=== PATIENT | female | born 1990 | race Caucasian/White ===

== ENCOUNTER 2020-10-06 03:31 | Emergency (ER) | payer SELFPAY ==
[2020-10-06 03:56] VITALS: BP 117/79; PULSE 82; TEMP 98.3; BMI 25.6
[2020-10-06] MEDS ORDERED: AZITHROMYCIN 500 MG TABLET PO ONE (04:18)
[2020-10-06] MEDS ORDERED: metroNIDAZOLE 250 MG TABLET PO ONE (04:18)
[2020-10-06] MEDS ORDERED: AZITHROMYCIN 250 MG TABLET ONE (04:36)
[2020-10-06] MEDS ORDERED: metroNIDAZOLE 500 MG TABLET PO ONE (05:00)
[2020-10-06 06:23] LABS: HIV INTERPRETATION NEGATIVE (NEGATIVE)
== END 2020-10-06 06:13 | disposition home or self-care (01) ==
LOC: JER 03:31
DX: Z20.2 Contact with and (suspected) exposure to infections with a predominantly sexual mode of transmission (principal)
CPT/HCPCS: 36415; 86780; 87389; 87491; 87591; 87661; 99284-25

== ENCOUNTER 2024-08-12 09:39 | Emergency (ER) | payer OTHER ==
[2024-08-12 09:44] VITALS: BP 135/81; PULSE 103; RESP 18; TEMP 98.1; BMI 27.4
[2024-08-12] MEDS ORDERED: ACETAMINOPHEN INJECTION 100 ML ONE (10:13)
[2024-08-12 10:21] LABS: BASO % 0.9 % (0-2.0); EOS % 1.2 % (0-4.5); HEMATOCRIT 20.9 % (32.4-45.2); LYMPH % 18.3 % (8-40); MCHC 30.5 g/dl (32.0-36.0); MEAN CELL VOLUME 63.1 fl (80-96); MEAN PLT VOLUME 6.8 fl (7.5-11.1); MONO % 4.1 % (3.8-10.2); NEUT % 75.5 % (42.8-82.8); PLATELET COUNT 622 10^3/uL (134-434); RBC 3.32 M/mm3 (3.60-5.2); RDW 18.3 % (11.6-15.6); WHITE BLOOD COUNT 14.7 K/mm3 (4.0-10.0)
[2024-08-12 10:22] LABS: MCH 19.3 pg (25.7-33.7)
[2024-08-12] MEDS ORDERED: KETOROLAC TROMETHAMINE 30 MG/1 ML VIAL ONE (10:23)
[2024-08-12 10:26] LABS: HEMOGLOBIN 6.4 GM/dL (10.7-15.3)
[2024-08-12] MEDS: ACETAMINOPHEN 500 MG TABLET (FP) PO ONE (10:35)
[2024-08-12] MEDS: KETOROLAC TROMETHAMINE 30 MG/1 ML VIAL IVPUSH ONE (10:35)
[2024-08-12] MEDS ORDERED: VANCOMYCIN HCL 1,500 MG in DEXTROSE 5%-WATER - 500 ML IVPB ONE (10:43)
[2024-08-12 10:46] LABS: POTASSIUM 5.2 mmol/L (3.5-5.1)
[2024-08-12 10:47] LABS: CALCIUM 8.7 mg/dL (8.5-10.1)
[2024-08-12 10:48] LABS: BLOOD UREA NITROGEN 11.3 mg/dL (7-18)
[2024-08-12 10:51] LABS: CREATININE 0.8 mg/dL (0.55-1.3)
[2024-08-12 10:56] LABS: ANISOCYTOSIS 2+; MACROCYTOSIS 0
== END 2024-08-12 14:30 | disposition left against medical advice (07) ==
LOC: JER 09:39
PROC: 3E0333Z Introduction of Anti-inflammatory into Peripheral Vein, Percutaneous Approach (ICD-10-PCS; principal; 2024-08-12)
DX: O03.9 Complete or unspecified spontaneous abortion without complication (principal); D64.9 Anemia, unspecified; L08.9 Local infection of the skin and subcutaneous tissue, unspecified; R10.31 Right lower quadrant pain
CPT/HCPCS: 36415; 80048; 84702; 85025; 93005; 93010; 99284-25

== ENCOUNTER 2024-08-15 08:14 | Inpatient (IN) | payer OTHER ==
[2024-08-15 10:26] LABS: BASO % 0.6 % (0-2.0); EOS % 2.8 % (0-4.5); HEMATOCRIT 19.7 % (32.4-45.2); LYMPH % 20.2 % (8-40); MCHC 30.1 g/dl (32.0-36.0); MEAN CELL VOLUME 64.6 fl (80-96); MEAN PLT VOLUME 6.5 fl (7.5-11.1); MONO % 4.7 % (3.8-10.2); NEUT % 71.7 % (42.8-82.8); PLATELET COUNT 701 10^3/uL (134-434); RBC 3.04 M/mm3 (3.60-5.2); RDW 18.7 % (11.6-15.6); WHITE BLOOD COUNT 10.4 K/mm3 (4.0-10.0)
[2024-08-15 10:27] LABS: INR 1.03 (0.83-1.09); MCH 19.4 pg (25.7-33.7); PROTHROMBIN TIME (PATIENT) 11.8 SEC (9.7-13.0)
[2024-08-15 10:30] LABS: ACTIVATED PTT 32.2 SECONDS (25.2-36.5); HEMOGLOBIN 5.9 GM/dL (10.7-15.3); POTASSIUM 3.4 mmol/L (3.5-5.1)
[2024-08-15 10:31] LABS: CALCIUM 8.5 mg/dL (8.5-10.1)
[2024-08-15 10:32] LABS: ALBUMIN 2.4 g/dl (3.4-5.0); BLOOD UREA NITROGEN 7.2 mg/dL (7-18)
[2024-08-15 10:35] LABS: CREATININE 0.8 mg/dL (0.55-1.3)
[2024-08-15 10:37] LABS: BILIRUBIN,TOTAL 0.2 mg/dL (0.2-1); TOT PROT 8.6 g/dl (6.4-8.2)
[2024-08-15] MEDS ORDERED: PIPERACILLIN/TAZOB 4.5 GM 4.5 GM/100 ML BAG IVPB ONE (10:56)
[2024-08-15 11:15] LABS: ERYTHROCYTE SEDIMENTATION RATE 56 mm/hr (0-20)
[2024-08-15] MEDS: PIPERACILLIN/TAZOB 4.5 GM 4.5 GM in DEXTROSE 5%-WATER 100 ML IVPB ONE (11:36)
[2024-08-15 12:17] LABS: HIV INTERPRETATION NEGATIVE (NEGATIVE)
[2024-08-15] MEDS ORDERED: ACETAMINOPHEN 325 MG TABLET (FP) PO PRN (12:40)
[2024-08-15] MEDS: RHO(D) IMMUNE GLOBULIN 1,500 UNIT DISP.SYRIN IM ONE (12:56)
[2024-08-15] MEDS ORDERED: POTASSIUM CHLORIDE ORAL LIQUID 20 MEQ/15 ML ONE (12:57)
[2024-08-15] MEDS: POTASSIUM CHLORIDE ORAL LIQUID 20 MEQ/15 ML PO ONE (12:59)
[2024-08-15] MEDS: VANCOMYCIN HCL 1,500 MG in DEXTROSE 5%-WATER - 500 ML IVPB ONE (15:10)
[2024-08-15] MEDS: VANCOMYCIN/WATER 1250 MG 1,250 MG/250 ML BAG IVPB ONE ×2 (15:11→15:18)
[2024-08-15 15:58] VITALS: BMI 30.3
[2024-08-15] MEDS: PIPERACILLIN/TAZOB 4.5 GM 4.5 GM/100 ML BAG IVPB SCH (17:27)
[2024-08-15] MEDS ORDERED: PIPERACILLIN/TAZOB 4.5 GM 4.5 GM/100 ML BAG IVPB SCH (18:00)
[2024-08-15] MEDS: SODIUM CHLORIDE 0.9% 250 ML INFUS.BAG IV ONE (18:20)
[2024-08-15 22:47] VITALS: BP 129/75; PULSE 74; RESP 18; TEMP 98.4
[2024-08-16] MEDS ORDERED: VANCOMYCIN/WATER 1250 MG 1,250 MG/250 ML BAG IVPB ONE (02:00)
[2024-08-16] MEDS ORDERED: VANCOMYCIN 1,250 MG in DEXTROSE 5%-WATER - 250 ML IVPB SCH (03:00)
== END 2024-08-15 22:15 | disposition left against medical advice (07) | DRG 564 ==
LOC: JER 08:14 → JERBED 12:11 → J6S 13:33
PROVIDERS: ADMIT Student in an Organized Health Care Education/Training Program; ATTEND Student in an Organized Health Care Education/Training Program
PROC: 30233N1 Transfusion of Nonautologous Red Blood Cells into Peripheral Vein, Percutaneous Approach (ICD-10-PCS; principal; 2024-08-15)
DX: O03.6 Delayed or excessive hemorrhage following complete or unspecified spontaneous abortion (principal); F11.20 Opioid dependence, uncomplicated; M86.8X3 Other osteomyelitis, forearm; D62 Acute posthemorrhagic anemia; R65.10 Systemic inflammatory response syndrome (SIRS) of non-infectious origin without acute organ dysfunction; E87.6 Hypokalemia; F14.90 Cocaine use, unspecified, uncomplicated; L03.114 Cellulitis of left upper limb; L03.113 Cellulitis of right upper limb
CPT/HCPCS: 36415; 36430; 73090-TC-LT-FY; 73090-TC-RT-FY; 76817-TC; 80048; 80053; 83735; 84702; 85025; 85610; 85651; 85730; 86140; 86803; 86850; 86900; 86901; 86922; 87040; 87070; 87186; 87205; 87389; 87522; 93005; 93010; 96372; 99285-25; J2790; P9058

== ENCOUNTER 2024-09-08 22:50 | Inpatient (IN) | payer OTHER ==
[2024-09-08 23:09] VITALS: BMI 28.5
[2024-09-09] MEDS ORDERED: MORPHINE SULFATE 2 MG/ML SYRINGE ONE ×2 (00:42→11:29)
[2024-09-09] MEDS: morphine CARPU-JECT 2 MG/1 ML DISP.SYRIN IVPUSH ONE ×2 (01:58→11:40)
[2024-09-09] MEDS: SODIUM CHLORIDE 0.9% 500 ML INFUS.BAG IV ONE (01:58)
[2024-09-09 02:27] LABS: HEMATOCRIT 28.4 % (32.4-45.2); HEMOGLOBIN 8.5 GM/dL (10.7-15.3); MCH 20.4 pg (25.7-33.7); MEAN CELL VOLUME 67.7 fl (80-96); MEAN PLT VOLUME 7.6 fl (7.5-11.1); PLATELET COUNT 618 10^3/uL (134-434); WHITE BLOOD COUNT 22.5 K/mm3 (4.0-10.0)
[2024-09-09 02:29] LABS: POTASSIUM 3.9 mmol/L (3.5-5.1)
[2024-09-09 02:32] LABS: ALBUMIN 2.5 g/dl (3.4-5.0); BLOOD UREA NITROGEN 7.2 mg/dL (7-18)
[2024-09-09 02:35] LABS: CREATININE 0.7 mg/dL (0.55-1.3)
[2024-09-09 02:37] LABS: BILIRUBIN,TOTAL 0.4 mg/dL (0.2-1); TOT PROT 8.8 g/dl (6.4-8.2)
[2024-09-09 05:39] LABS: ANISOCYTOSIS 3+; MACROCYTOSIS 0; ROULEAU 1+
[2024-09-09] MEDS ORDERED: PIPERACILLIN/TAZOB 4.5 GM 4.5 GM/100 ML BAG IVPB ONE ×2 (11:29→18:51)
[2024-09-09] MEDS: PIPERACILLIN/TAZOB 4.5 GM 4.5 GM in DEXTROSE 5%-WATER 100 ML IVPB ONE (11:40)
[2024-09-09 12:05] LABS: VENOUS BASE EXCESS -1.1 mmol/L (-2-2); VENOUS O2 SATURATION 87.9 % (70-80); VENOUS PCO2 42.8 mmHg (38-52); VENOUS PH 7.369 (7.310-7.410)
[2024-09-09] MEDS ORDERED: VANCOMYCIN/WATER 1250 MG 1,250 MG/250 ML BAG IVPB ONE (12:25)
[2024-09-09] MEDS: VANCOMYCIN/WATER 1250 MG 1,250 MG/250 ML BAG IVPB ONE (12:32)
[2024-09-09] MEDS: LACTATED RINGERS SOLUTION 1,000 ML IV SCH (15:21)
[2024-09-09 17:24] LABS: EPI CELLS 17 /uL (0-25.1); HYALINE CASTS 0 /uL (0-3.1); URINE APPEARANCE CLEAR; URINE BILIRUBIN NEGATIVE (NEGATIVE); URINE COLOR YELLOW; URINE GLUCOSE (UA) NEGATIVE (NEGATIVE); URINE KETONE NEGATIVE (NEGATIVE); URINE LEUK ESTERASE 2+ (NEGATIVE); URINE NITRITE POSITIVE (NEGATIVE); URINE PROTEIN NEGATIVE (NEGATIVE); URINE RBC 22 /uL (0-23.9); URINE WBC 369 /uL (0-25.8)
[2024-09-09 17:32] LABS: URINE BARBITURATES NEGATIVE (NEGATIVE); URINE BENZODIAZEPINES NEGATIVE (NEGATIVE)
[2024-09-09 17:34] LABS: METHADONE, UR NEGATIVE (NEGATIVE); PHENCYCLIDINE,URINE NEGATIVE (NEGATIVE)
[2024-09-09 17:36] LABS: COCAINE, UR POSITIVE (NEGATIVE); OPIATES, URI POSITIVE (NEGATIVE); URINE AMPHETAMINES POSITIVE (NEGATIVE)
[2024-09-09] MEDS ORDERED: PIPERACILLIN/TAZOB 2.25 GM 2.25 GM/50 ML BAG IVPB SCH ×2 (18:00)
[2024-09-09 18:23] LABS: URINE BACTERIA 268.3 /uL (0-1359)
[2024-09-09] MEDS: PIPERACILLIN/TAZOB 4.5 GM 4.5 GM/100 ML BAG IVPB SCH (18:59)
[2024-09-09] MEDS ORDERED: cloNIDine HCL 0.1 MG TABLET PO PRN (20:01)
[2024-09-09] MEDS ORDERED: methaDONE HCL 10 MG TABLET ONE (21:21)
[2024-09-09] MEDS: methaDONE HCL 10 MG TABLET PO ONE (21:31)
[2024-09-09 21:42] VITALS: TEMP 98.2
[2024-09-09] MEDS ORDERED: ACETAMINOPHEN 1000 MG/100 ML BAG IVPB PRN (21:56)
[2024-09-10] MEDS ORDERED: VANCOMYCIN 1 GM PREMIX (F) 1 GM/200 ML BAG IVPB SCH
[2024-09-10] MEDS ORDERED: VANCOMYCIN 1 GM PREMIX (F) 1 GM/200 ML BAG ONE (00:05)
[2024-09-10] MEDS: VANCOMYCIN/WATER FOR INJ (PEG) 1 GM/200 ML BAG IVPB SCH (00:12)
[2024-09-10] MEDS ORDERED: PIPERACILLIN/TAZOB 4.5 GM 4.5 GM/100 ML BAG IVPB ONE ×2 (02:03→10:50)
[2024-09-10 05:04] VITALS: BP 98/56; PULSE 77; RESP 15
[2024-09-10] MEDS ORDERED: methaDONE HCL 10 MG TABLET ONE (10:49)
[2024-09-10] MEDS: ENOXAPARIN NA (PORCINE) 40 MG/0.4 ML DISP.SYRIN SQ SCH (11:06)
[2024-09-11] MEDS ORDERED: VANCOMYCIN/WATER FOR INJ (PEG) 1,000 MG/200 ML BAG IVPB SCH
[2024-09-11] MEDS ORDERED: methaDONE HCL 10 MG TABLET PO ONE (10:00)
[2024-09-13] MEDS ORDERED: methaDONE HCL 10 MG TABLET PO ONE (10:00)
== END 2024-09-10 11:58 | disposition left against medical advice (07) | DRG 720 ==
LOC: JER 22:50 → JERBED 09-09 12:14
PROVIDERS: ADMIT Internal Medicine; ATTEND Internal Medicine
DX: A41.02 Sepsis due to Methicillin resistant Staphylococcus aureus (principal); D62 Acute posthemorrhagic anemia; F11.20 Opioid dependence, uncomplicated; B19.20 Unspecified viral hepatitis C without hepatic coma; D72.829 Elevated white blood cell count, unspecified; F14.10 Cocaine abuse, uncomplicated; F17.210 Nicotine dependence, cigarettes, uncomplicated; N92.0 Excessive and frequent menstruation with regular cycle
CPT/HCPCS: 36415; 74177-TC; 76830-TC; 80053; 80307; 81003; 82803; 83605; 84702; 84703; 85025; 87040; 87086; 87491; 87591; 87661; 93306-TC; 99285-25